=== PATIENT | male | born 1990 | race Caucasian/White ===

== ENCOUNTER 2024-07-28 19:32 | Emergency (ER) | payer SELFPAY ==
[2024-07-28 19:34] VITALS: BP 113/84; PULSE 89; RESP 16; TEMP 36.6; O2SAT 98; BMI 28.5
[2024-07-28 19:46] VITALS: BMI 28.5
--- NOTE | 2024-07-28 20:04 | EX.ED.DYSGE1 ---
HPI History of Present Illness Chief Complaint: Meds Only Detail of Chief Complaint: Possible bat bite Informant: patient Onset/Context/Timing Onset: Today Quality: Awoke in room with bat Location: Residence Current Severity: Not applicable Maximum Severity: Not applicable Worsened by: Not applicable Relieved by: not applicable Associated Symptoms Associated Symptoms: None Narrative Narrative: 34-year-old male with no significant past medical history who awoke in bedroom with bath. No bite to his knowledge. No allergies. Prior similar symptoms: No Recent Illness/Hospitalization: No PFSH PFSH Medical History no medical history no medical history Allergy/AdvReac Type Severity Reaction Status Date / Time No Known Allergies Allergy Verified 07/28/24 19:35 Social History (Updated 07/28/24 @ 20:[address] Skinny Patricia MD) household members: spouse and children housing: house ROS ROS ED Constitutional Constitutional ED: Denies chills or fever(s) Eyes Eyes: Reports other Details: None Cardiovascular Cardiovascular: Denies chest pain Integumentary Denies rash Hematologic/Lymphatic Hematologic/Lymphatic: Denies easy bleeding or easy bruising EXAM Physical Exam Const Vital Signs: 07/28/24 19:34 Temperature 97.8 F Temperature Source Temporal Pulse Rate 89 Respiratory Rate 16 Blood Pressure 113/84 H Blood Pressure Mean 93 Pulse Ox 98 Oxygen Delivery Method Room Air Positive well nourished and well developed General Appearance ED: well developed and NAD HEENT Reports moist mucous membranes HEENT Narrative: Is atraumatic no cephalic. Ears normal. Eyes PERRL and EOMs intact bilaterally Resp normal respiratory effort Extremity normal to inspection Neuro oriented x3 and CN's II-XII intact bilaterally Sensorium / Orientation: alert Psych mental status grossly normal Skin no rashes or lesions noted MDM MDM MDM Narrative Medical decision making narrative: Possible bite by bath. Will treat with rabies immunoglobulin and rabies vaccine. He did capture the bat. He was told to put the bat in a brown paper bag in the refrigerator and bring it to the health department so that they could send it down to [facility] to have the brain examined and determine if the bat does or does not have rabies. Discharge Plan Triage Chief Complaint: Meds Only ED Provider: Skinny Patricia Dx/Rx/DC Orders Clinical Impression: Exposure to bat without known bite Instructions: Rabies Immune Globulin (Human) Solution for injection, Understanding Rabies Primary Care Provider: HoKavitha ferrer NP Referrals: Kavitha Potts CLINICAL DIETICIAN, CLINICAL DIETICIAN-C [Primary Care Provider] - As Needed Activity Restrictions/Additional Instructions: 1. Put the bat in a brown paper bag and placed the bag in the refrigerator. Bring the bat to the health department so that the brain can be analyzed to determine if the bat does or does not have rabies. Print Language: Upper Sorbian Disposition Disposition: Home, Self Care
[2024-07-28] MEDS: Rabies Vaccine,Human Diploid 2.5 UNITS Vial IM (20:49)
[2024-07-28] MEDS: Rabies Immune Globulin/PF 300 UNIT/ML, 5 ML VIAL 1500 UNIT IM (20:51)
[2024-07-28] MEDS: Rabies Immune Globulin/PF 300 UNIT/ML, 1 ML VIAL IM (20:57)
[2024-07-28 21:32] VITALS: BP 112/84; PULSE 71; RESP 18; TEMP 36.7; O2SAT 98
== END 2024-07-28 21:33 | disposition home or self-care (01) ==
PROVIDERS: Emergency Provider Emergency Medicine; PCP Nurse Practitioner Family; Visit Provider Emergency Medicine
DX: Z04.89 Encounter for examination and observation for other specified reasons (principal)
CPT/HCPCS: 90675; 99281; 90375